=== PATIENT | male | born 1970 | race Hispanic/Latino ===

== ENCOUNTER 2018-10-07 14:58 | Emergency (ER) | payer OTHER ==
--- NOTE | 2018-10-07 15:24 | Emergency Department Report ---
Blank Doc - Documentation Documentation: This is a 58-year-old female that presents with bat bite. This initial assessment/diagnostic orders/clinical plan/treatment(s) is/are subject to change based on patient's health status, clinical progression and re- assessment by fellow clinical providers in the ED. Further treatment and workup at subsequent clinical providers discretion. Patient/guardians urged not to elope from the ED as their condition may be serious if not clinically assessed and managed. Initial orders include: 1- Patient sent to [facility] for further evaluation and treatment 2- rabies vaccines
[2018-10-07 15:25] VITALS: BP 113/69
[2018-10-07] MEDS ORDERED: RABAVERT RABIES VACCINE(PCEC) IM ONE (16:25)
[2018-10-07] MEDS ORDERED: IBUPROFEN PO ONE (17:11)
--- NOTE | 2018-10-07 17:11 | Emergency Department Report ---
ED Animal Bite HPI - General Chief Complaint: Animal Bite Stated Complaint: RABIES SHOT Time Seen by Provider: 10/07/18 15:22 Source: patient Mode of arrival: Ambulatory Limitations: No Limitations - History of Present Illness Initial Comments: Patient is a very nice 48-year-old who comes to the ER after being bit by a bat. Patient has been to numerous other places attempting to get rabies shots but they are not available so he comes to the ER. Patient has a bite to his finger from a bat that was at his home. He did have the bat and took her to [facility]. They did not have the rabies vaccine, they told him he should not about the back. So he comes to the ER today with his body which occurred last night, for rabies inoculation. Patient does not have the bat a longer period The patient states that he was of the impression that bats eat other insects so he actually has a bat house on the top of his home. We discussed the problem with this and I have asked him to contact animal authorities to safely remove that bat house. Complaint: animal bite - Related Data Allergies Allergy/AdvReac Type Severity Reaction Status Date / Time No Known Allergies Allergy Unverified 10/07/18 15:08 ED Review of Systems ROS: Stated complaint: RABIES SHOT Other details as noted in HPI Comment: All other systems reviewed and negative ED Past Medical Hx - Past Medical History Previous Medical History?: No - Surgical History Past Surgical History?: No - Social History Smoking Status: Never Smoker Substance Use Type: None ED Physical Exam - General Limitations: No Limitations General appearance: alert - Head Head exam: Present: atraumatic - Eye Eye exam: Present: normal appearance, PERRL - ENT ENT exam: Present: mucous membranes moist - Neck Neck exam: Present: meningismus - Cardiovascular Cardiovascular Exam: Present: regular rate - GI/Abdominal GI/Abdominal exam: Present: soft - Rectal Rectal exam: Present: deferred - Neurological Exam Neurological exam: Present: alert, oriented X3, normal gait - Psychiatric Psychiatric exam: Present: normal affect, normal mood ED Course Vital Signs 10/07/18 15:22 Temperature 97.9 F Pulse Rate 60 Respiratory 18 Rate Blood Pressure 113/69 - Reevaluation(s) Reevaluation #1: Patient has a bat bite to his left middle finger, the tip of the finger. The RN has given the IM injection of rabies. I have given the slight injection. Given that the surface area of the finger is so small I used the remaining dose and injected the same extremity as the bite. Patient was given a list of community resources for rabies series. It has been brought to our attention recently in the emergency room that these organizations are out of the rabies vaccines. Per the nursing staff administration has been informed of this. For this reason I given the patient the list of resources, told him to call them and see if they have the inoculation which will be due in 7 days, and if not to come back to the emergency room to be sure that he gets this second injection. I've asked the patient to write the date and the name of the person that he spoke to each of these organizations: In the event that somebody here with asked him information if he were to return. This is important given the rabies is 100% fatal and in the state of [place] bats were noted to be 1 the main carriers of rabies. I do not want to run the risk of this patient not getting proper immunization because of lack of availability of series. Critical care attestation.: If time is entered above; I have spent that time in minutes in the direct care of this critically ill patient, excluding procedure time. ED Disposition Clinical Impression: Bat bite of finger, Need for rabies vaccination Disposition: DC-01 TO HOME OR SELFCARE Is pt being admited?: No Does the pt Need Aspirin: No Condition: Stable Instructions: Rabies Vaccine (Injection), Rabies Immune Globulin (Injection), A nimal Bite (ED), Rabies (ED) Additional Instructions: DIET TOLERATED MEDS ORDERED TODAY IN ER FOLLOW INSTRUCTIONS ON THE BOTTLE FOLLOW UP PCP WITHIN 48 HOURS TO ENSURE YOU ARE GETTING BETTER ACTIVITY TOLERATED MOTRIN OR TYLENOL FOR PAIN OR FEVER RETURN TO THE ER FOR WORSENING SYMPTOMS NOT RELIEVED BY YOUR MEDICATIONS. FOLLOW UP WE DISCUSSED Referrals: PRIMARY CARE, [Primary Care Provider] - 3-5 Days [facility] [Outside] - 3-5 Days Time of Disposition: 17:47
== END 2018-10-07 18:23 | disposition home or self-care (01) ==
LOC: EDBD → ED 14:58
DX: S61.253A Open bite of left middle finger without damage to nail, initial encounter (principal); W57.XXXA Bitten or stung by nonvenomous insect and other nonvenomous arthropods, initial encounter; Y93.89 Activity, other specified; Y92.89 Other specified places as the place of occurrence of the external cause; Y99.8 Other external cause status
CPT/HCPCS: 90375; 90471; 90675; 96372; 99281